=== PATIENT | male | born 1945 | race Caucasian/White ===

== ENCOUNTER 2016-07-29 09:06 | Inpatient (IN) | payer BC ==
[~2016-07-29] VITALS: Ht 172.7 cm; Wt 95.9 kg
[2016-07-29] MEDS ORDERED: METHYLPREDNISOLO4 M1 PO (09:17)
[2016-07-29] MEDS ORDERED: PHENERGAN-CODE120 ML PO (09:17)
[2016-07-29] MEDS ORDERED: BACTRIM,SEPT1 TABLET PO (09:17)
[2016-07-29] MEDS ORDERED: HYDROCODON-ACE1 EAC8 PO (09:18)
[2016-07-29] MEDS ORDERED: TAMSULOSIN HCL0.4 MG PO (09:19)
[2016-07-29] MEDS ORDERED: OLMSRTN-AMLDPN1 EAC4 PO (09:19)
[2016-07-29] MEDS ORDERED: FINASTERIDE5 MG PO (09:20)
[2016-07-29] MEDS ORDERED: DAILY VALUE1 EACH PO (09:20)
[2016-07-29 15:25] LABS: EOSINOPHIL (%) 2.9 % (0-5); EOSINOPHIL COUNT 0.2 K/uL (0-0.3); HEMATOCRIT 41.3 % (38.0-50.0); IMMATURE GRANULOCYTE (%) 0.4 % (0.0-0.7); IMMATURE GRANULOCYTE COUNT 0.3 K/uL; LYMPHOCYTE COUNT 2.3 K/uL (1.0-2.8); MCH 31.3 PG (29.0-34.0); MCHC 33.9 G/DL (30.0-36.0); MCV 92.4 FL (86-99); MONOCYTE (%) 10.8 % (3-12); MONOCYTE COUNT 0.8 K/uL (0-0.8); NEUTROPHIL (%) 54.5 % (45-76); PLATELET COUNT 227 K/uL (156-360); RBC DIS.WIDTH-CV 12.8 % (11.8-14.6); RBC DIS.WIDTH-SD 41.6 % (39-53); RED BLOOD COUNT 4.47 M/uL (4.00-5.50); WHITE BLOOD COUNT 7.3 K/uL (4.1-10.2)
[2016-07-29 15:33] LABS: CHLORIDE 102 mEq/L (99-109); POTASSIUM 4.8 mEq/L (3.7-5.4); SODIUM 141 mEq/L (136-147)
[2016-07-29 15:35] LABS: GLUCOSE 104 mg/dL (70-99)
[2016-07-29 15:36] LABS: ANION GAP 9 MEQ/L (2-14)
[2016-07-29 15:37] LABS: TOTAL BILIRUBIN 0.6 mg/dL (0.0-1.0)
[2016-07-29 15:39] LABS: ALKALINE PHOSPHATASE 47 IU/L (3-129); GFR ESTIMATE (CALCULATED) > 59 mL/min/
[2016-07-29 15:40] LABS: UREA NITROGEN (BUN) 32 mg/dL (9-23)
[2016-07-29 23:29] VITALS: BP 147/72
[2016-07-30 03:59] VITALS: BP 148/70
[2016-07-30 08:07] VITALS: BP 152/73
[2016-07-30 12:10] VITALS: BP 141/68
[2016-07-30 16:02] VITALS: BP 150/70
[2016-07-30 20:11] VITALS: BP 156/81
[2016-07-31 00:20] VITALS: BP 160/76
[2016-07-31 04:22] VITALS: BP 120/68
[2016-07-31 08:10] VITALS: BP 137/79
[2016-07-31 12:18] VITALS: BP 125/63
[2016-07-31 16:52] VITALS: BP 178/83
[2016-07-31] MEDS ORDERED: HYDROMORPHONE HC4 MG PO (20:09)
[2016-07-31] MEDS ORDERED: CYCLOBENZAPRINE5 MG PO (20:09)
[2016-07-31] MEDS ORDERED: AUGMENTIN500 MG PO (20:09)
[2016-07-31] MEDS ORDERED: GABAPENTIN300 MG PO (20:09)
== END 2016-07-31 21:10 | disposition home or self-care (01) | DRG 552 ==
LOC: EME → EDBD 09:06 → EME 09:06 → EDOF 20:55 → 5WEST 20:55 → EDOF 21:18 → 5WEST 23:16
PROVIDERS: Emergency Medicine
DX: M51.16 Intervertebral disc disorders with radiculopathy, lumbar region (principal); J40 Bronchitis, not specified as acute or chronic; G89.29 Other chronic pain; I10 Essential (primary) hypertension; Z98.1 Arthrodesis status; Z79.82 Long term (current) use of aspirin
CPT/HCPCS: 71020; 72148; 80053; 85025; 93970; 94640; 94640 76; 94799; 99202; 99281; 99285; G0378; J0692; J1100; J1170; J1650; J1885; J2250; J2270; J3010; J7050

== ENCOUNTER 2016-11-20 07:10 | Day surgery (SDC) | payer BC ==
[~2016-11-20] VITALS: Ht 172.7 cm; Wt 93.4 kg
[~2016-11-20 07:10] MED LIST: AUGMENTIN500 MG PO; BACTRIM,SEPT1 TABLET PO; BENICAR40 MG PO; CYCLOBENZAPRINE5 MG PO; DAILY VALUE1 EACH PO; FINASTERIDE5 MG PO; GABAPENTIN300 MG PO; HYDROCHLOROTHIA25 MG PO; HYDROCODON-ACE1 EAC8 PO; HYDROMORPHONE HC4 MG PO; METHYLPREDNISOLO4 M1 PO; NORVASC10 MG PO; OLMSRTN-AMLDPN1 EAC4 PO; PHENERGAN-CODE120 ML PO; TAMSULOSIN HCL0.4 MG PO
== END 2016-11-20 08:50 | disposition home or self-care (01) ==
LOC: PAIN 07:10 → SDC 07:45 → PAIN 07:45
DX: M51.16 Intervertebral disc disorders with radiculopathy, lumbar region (principal); I10 Essential (primary) hypertension; Z79.891 Long term (current) use of opiate analgesic
CPT/HCPCS: J1100; J2250; J3010